=== PATIENT | female | born 1955 | race Caucasian/White ===

== ENCOUNTER 2017-06-21 12:08 | Day surgery (SDC) | payer MEDICARE, OTHER ==
[~2017-06-21 12:08] MED LIST: CEFAZOLIN SODIUM 2 GM in NORMAL SALINE 100 ML IV PRN; DEXAMETHASONE SOD PHOSPHATE INJ 4 MG/1 ML VIAL ONE; LIDOCAINE 2% INJ-PF (20 MG/ML) 2 ML AMPUL ONE; ONDANSETRON HCL INJ/PF 4 MG/2 ML SDV ONE; SUCCINYLCHOLINE CHLORIDE INJ 200 MG/10 ML VIAL ONE
[2017-06-21 13:02] LABS: APPEARANCE,URINE SLIGHTLY-CLOUDY; BILIRUBIN,URINE NEGATIVE (NEGATIVE); COLOR,URINE YELLOW; GLUCOSE, URINE NEGATIVE (NEGATIVE); KETONES,URINE NEGATIVE (NEGATIVE); LEUKOCYTE ESTERASE,URINE MODERATE (NEGATIVE); NITRITE,URINE NEGATIVE (NEGATIVE); PROTEIN,URINE NEGATIVE (NEGATIVE); URINE SPECIFIC GRAVITY 1.026; UROBILINOGEN,URINE NEGATIVE mg/dL (<2.0)
--- NOTE | 2017-06-21 13:20 | RADIOLOGY REPORT (SQ) ---
EXAM DESCRIPTION: CHEST SINGLE VIEW COMPLETED DATE/TIME: 06/21/2017 1:03 pm REASON FOR STUDY: PREOP COMPARISON: None. EXAM PARAMETERS: NUMBER OF VIEWS: One view. TECHNIQUE: Single frontal radiographic view of the chest acquired. RADIATION DOSE: NA LIMITATIONS: None. FINDINGS: LUNGS AND PLEURA: Linear density left lung base consistent with chronic scarring. MEDIASTINUM AND HILAR STRUCTURES: No masses. Contour normal. HEART AND VASCULAR STRUCTURES: Heart normal in size. Normal vasculature. BONES: No acute findings. HARDWARE: None in the chest. OTHER: No other significant finding. IMPRESSION: No acute disease. TECHNICAL DOCUMENTATION: JOB ID: [id number] [employer]- All Rights Reserved Reading location - IP/workstation name: [email or web address]
[2017-06-21 13:48] LABS: HEMATOCRIT 32.3 % (36.0-47.0); HEMOGLOBIN 11.1 g/dL (12.0-15.5); MEAN CORPUSCULAR HGB CONC 34.5 g/dL (32.0-36.0); MEAN CORPUSCULAR VOLUME 93 fl (80-97); PLATELET COUNT 237 10^3/uL (150-450); RED BLOOD COUNT 3.48 10^6/uL (3.72-5.28); RED CELL DISTRIBUTION WIDTH 13.1 % (11.5-14.0); WHITE BLOOD COUNT 7.2 10^3/uL (4.0-10.5)
[2017-06-21 14:05] LABS: ANION GAP 11 (5-19); BLOOD UREA NITROGEN 16 mg/dL (7-20); CALCIUM 9.6 mg/dL (8.4-10.2); CARBON DIOXIDE 28 mmol/L (22-30); CHLORIDE 102 mmol/L (98-107); GLUCOSE 97 mg/dL (75-110); POTASSIUM 4.2 mmol/L (3.6-5.0); SODIUM 141.3 mmol/L (137-145)
[2017-06-21] MEDS ORDERED: FENTANYL CITRATE INJ/PF 250 MCG/5 ML AMPULE ONE (14:41)
[2017-06-21] MEDS ORDERED: MIDAZOLAM 2 MG/2 ML INJ ONE (14:41)
[2017-06-21] MEDS ORDERED: ACETAMINOPHEN 100 ML IV ONE (14:42)
[2017-06-21] MEDS ORDERED: PROPOFOL INJ 200 MG/20 ML VIAL IV ONE (14:42)
[2017-06-21] MEDS ORDERED: BUPIVACAINE HCL 0.25 % INJ/PF (2.5 MG/1 ML) 30 ML VIAL ONE (14:54)
[2017-06-21] MEDS ORDERED: DIPHENHYDRAMINE HCL 50 MG/ML VIAL IV PRN (16:25)
[2017-06-21] MEDS ORDERED: MORPHINE SULFATE 10 MG/ML INJ IV PRN (16:25)
[2017-06-21] MEDS ORDERED: FENTANYL CITRATE INJ/PF 100 MCG/2 ML AMPUL IV PRN ×3 (16:25)
[2017-06-21] MEDS ORDERED: PROMETHAZINE HCL INJ 25 MG/1 ML VIAL IV PRN (16:25)
[2017-06-21] MEDS ORDERED: MEPERIDINE HCL/PF INJ 25 MG/1 ML DISP.SYRIN IV PRN (16:25)
--- NOTE | 2017-06-21 17:48 | Operative Report ---
Operative Report DATE OF SURGERY: 06/21/17 PREOPERATIVE DIAGNOSIS: Left displaced ankle fracture POSTOPERATIVE DIAGNOSIS: Same OPERATION: ORIF of left ankle SURGEON: KATIE SANTAMARIA ANESTHESIA: GA TISSUE REMOVED OR ALTERED: None COMPLICATIONS: None ESTIMATED BLOOD LOSS: Less than 20 mL INTRAOPERATIVE FINDINGS: As above PROCEDURE: Patient received 2 g of Ancef in the preoperative holding area. Patient was now taken to the operating room and induced and intubated in supine position. Once the tube was secured a thigh tourniquet was applied to left extremity. Extremity was prepped and draped in a normal surgical fashion. Timeout was done identifying the left ankle as the correct site. Esmarch was used to exsanguinate the extremity and the tourniquet was inflated to 300 mmHg. A standard lateral incision was done straight over the distal fibula. Check position was taken down to the bone and then periosteal elevator was used to expose the fracture site and elevate the periosteum at the fracture site. Both fragments were visualized and I Samhmann was used to retract the tissue. I was able to then reduce the fracture with reduction clamps. C-arm pictures were taken to confirm our reduction. I then applied the appropriate plate and make sure was in a proper alignment and with C-arm. Once I was satisfied with the proximal distal situation and the AP lateral position of the plate I proceeded then to use the drill guide and drill to drill the proximal hole in the plate in the distal fragment. I measured and placed a proper length screw. I repeated this with the distal hole in the plate to secure the proximal fragment. Reduction clamp was removed and the fracture stayed reduced. AP and lateral x-rays confirm there is no change in alignment. I then proceeded to fill in the remaining holes I drilling and using C-arm and measuring guide to applied appropriate screws. Once I was satisfied with my lateral fixation I then turned my attention to the medial malleolus. A curvilinear incision was done over the medial aspect of the ankle using a 15 blade. Dissection was done with a Metzenbaum scissor. Branches of the small saphenous vein was visualized and retracted. Fracture site was exposed with hematoma. Between 15 blade and periosteal elevator was able to expose the 2 fracture ends. I used a pointed reduction clamp to do my reduction of the medial malleolus. C-arm confirmed proper reduction and therefore I used [address] him in the distal fragment into the proximal aspect of the tibia. AP and lateral C-arm pictures were taken confirming placement and reduction again. I then proceeded to use self drilling self-tapping screws after measuring appropriate length for both of them. C-arm pictures were taken on syndrome to confirm placement of the screws without any complications. I was satisfied with my reduction and fixation of the medial malleolus I then proceeded to close the wound medially with 0 Vicryl to Vicryl and dany.] At this point I proceeded to close my lateral wound with 0 Vicryl and 3-0 Vicryl and dany for skin. Tourniquet was let down and the dressing was applied. Xeroform 4 x 4 sterile dressing followed by Sof-Rol was applied. A posterior Ortho-Glass splint with a Ortho- Glass stirrup splint was applied and overwrapped with an Rod bandage. I held the foot in neutral and waiting until the splint hardened. At this point drapes were removed and patient was extubated and sent to PACU in stable condition.
--- NOTE | 2017-06-21 17:48 | Discharge Summary ---
Discharge Summary (SDC) - Discharge Final Diagnosis: ORIF of left ankle fracture Date of Surgery: 06/21/17 Discharge Date: 06/21/17 Condition: Good Treatment or Instructions: Keep dressing and splint dry clean and intact. Keep lower extremity iced and elevated when resting Nonweightbearing with crutches or walker Follow-up in 10-14 days in the office. Discharge Diet: As Tolerated Respiratory Treatments at Home: Deep Breathing/Coughing Discharge Activity: No Driving, Keep Legs Elevated, No Lifting/Push/Pulling Home Care Assistance: None Needed Adaptive Devices on Discharge: Standard Walker Report the Following to Your Physician Immediately: Shortness of Breath, Vomiting, Increase in Pain, Fever over 101 Degrees, Unusual Bleeding, Redness, Increased Soreness, Drainage-Yellow, Drainage-Shaw, Drainage-Green, Drainage- Foul Smelling
--- NOTE | 2017-06-21 18:41 | RADIOLOGY REPORT (SQ) ---
EXAM DESCRIPTION: NO CHG FLUORO; ANKLE LEFT AP/LATERAL COMPLETED DATE/TIME: 06/21/2017 6:27 pm REASON FOR STUDY: ORIF LT ANKLE COMPARISON: None. FLUOROSCOPY TIME: 0.6 minutes 2 Images saved to PACS LIMITATIONS: None. PROCEDURE: ORIF left ankle fractures. FINDINGS: 2 images obtained from fluoro document placement of along compression plate on the radius and 2 long cannulated screws through the medial malleolus. IMPRESSION: ORIF left ankle fractures. COMMENT: PQRS 6045F: Fluoroscopy time of the procedure is documented in the report. TECHNICAL DOCUMENTATION: JOB ID: [id number] [employer]- All Rights Reserved Reading location - IP/workstation name: [email or web address]
--- NOTE | 2017-06-21 18:41 | RADIOLOGY REPORT (SQ) ---
EXAM DESCRIPTION: NO CHG FLUORO; ANKLE LEFT AP/LATERAL COMPLETED DATE/TIME: 06/21/2017 6:27 pm REASON FOR STUDY: ORIF LT ANKLE COMPARISON: None. FLUOROSCOPY TIME: 0.6 minutes 2 Images saved to PACS LIMITATIONS: None. PROCEDURE: ORIF left ankle fractures. FINDINGS: 2 images obtained from fluoro document placement of along compression plate on the radius and 2 long cannulated screws through the medial malleolus. IMPRESSION: ORIF left ankle fractures. COMMENT: PQRS 6045F: Fluoroscopy time of the procedure is documented in the report. TECHNICAL DOCUMENTATION: JOB ID: [id number] [employer]- All Rights Reserved Reading location - IP/workstation name: [email or web address]
[2017-06-21] MEDS: HYDROCODONE/ACETAMINOPHEN 5-325 MG TABLET PO PRN (18:53)
[2017-06-21] MEDS ORDERED: ALPRAZOLAM 0.5 MG TABLET PO SCH (22:00)
--- NOTE | 2017-06-21 22:57 | EKG REPORT ---
SEVERITY:- ABNORMAL ECG - SINUS RHYTHM RVH WITH SECONDARY REPOLARIZATION ABNORMALITY : Confirmed by: Kobi Pemberton 21-Jun-2017 22:56:02
[2017-06-22] MEDS: HYDROCODONE/ACETAMINOPHEN 5-325 MG TABLET PO PRN ×2 (01:37→07:48)
[2017-06-22] MEDS ORDERED: LEVOTHYROXINE SODIUM 0.112 MG TABLET PO SCH (06:00)
[2017-06-22 08:20] VITALS: BP 126/57
== END 2017-06-22 10:56 | disposition home or self-care (01) ==
LOC: OROUT 12:08 → 2N 18:39 → OROUT 06-22 10:56
PROVIDERS: ATTEND Orthopaedic Surgery
PROC: 0QSK04Z Reposition Left Fibula with Internal Fixation Device, Open Approach (ICD-10-PCS; principal; 2017-06-21 14:30)
DX: S82.842A Displaced bimalleolar fracture of left lower leg, initial encounter for closed fracture (principal); V86.59XA Driver of other special all-terrain or other off-road motor vehicle injured in nontraffic accident, initial encounter; Y93.53 Activity, golf; R76.8 Other specified abnormal immunological findings in serum; A18.4 Tuberculosis of skin and subcutaneous tissue; E03.9 Hypothyroidism, unspecified; M19.90 Unspecified osteoarthritis, unspecified site; M06.9 Rheumatoid arthritis, unspecified; Z79.899 Other long term (current) drug therapy; Z01.89 Encounter for other specified special examinations
CPT/HCPCS: 36415; 85027; 80048; 81001; 73600; 71045; 93005; 93010; 27814; C1713 ×5; A9270 ×4; J2250; J0690; J1100; J3010; J0330; J2405; J2704; J0131; J3490; 01480